=== PATIENT | female | born 1990 | race Caucasian/White ===

== ENCOUNTER 2018-02-23 07:52 | Emergency (ER) | payer BC ==
[2018-02-23] MEDS ORDERED: NORMAL SALINE 1000 ML 1,000 ML IV ONE (08:57)
[2018-02-23 09:11] LABS: ABSOLUTE LYMPHOCYTES (AUTO) 1.4 10^3/uL (0.5-4.7); ABSOLUTE MONOCYTES (AUTO) 0.7 10^3/uL (0.1-1.4); ABSOLUTE NEUT (AUTO) 5.9 10^3/uL (1.7-8.2); BASOPHILS % (AUTO) 0.6 % (0-2); EOSINOPHILS % (AUTO) 0.3 % (0-6); HEMATOCRIT 41.6 % (36.0-47.0); HEMOGLOBIN 14.4 g/dL (12.0-15.5); LYMPHOCYTES % (AUTO) 17.3 % (13-45); MEAN CORPUSCULAR HEMOGLOBIN 31.9 pg (27.0-33.4); MEAN CORPUSCULAR HGB CONC 34.6 g/dL (32.0-36.0); MEAN CORPUSCULAR VOLUME 92 fl (80-97); MONOCYTES % (AUTO) 8.5 % (3-13); PLATELET COUNT 254 10^3/uL (150-450); RED BLOOD COUNT 4.51 10^6/uL (3.72-5.28); RED CELL DISTRIBUTION WIDTH 13.2 % (11.5-14.0); SEGMENTED NEUTROPHILS % (AUTO) 73.3 % (42-78); TOTAL CELLS COUNTED % (AUTO) 100 %; WHITE BLOOD COUNT 8.1 10^3/uL (4.0-10.5)
[2018-02-23 09:17] LABS: APPEARANCE,URINE SLIGHTLY-CLOUDY; BILIRUBIN,URINE NEGATIVE (NEGATIVE); COLOR,URINE YELLOW; GLUCOSE, URINE NEGATIVE (NEGATIVE); KETONES,URINE NEGATIVE (NEGATIVE); LEUKOCYTE ESTERASE,URINE TRACE (NEGATIVE); NITRITE,URINE NEGATIVE (NEGATIVE); PROTEIN,URINE NEGATIVE (NEGATIVE); URINE SPECIFIC GRAVITY 1.002; UROBILINOGEN,URINE NEGATIVE mg/dL (<2.0)
[2018-02-23] MEDS ORDERED: ONDANSETRON HCL INJ/PF 4 MG/2 ML SDV IV ONE (09:20)
[2018-02-23 09:36] LABS: ALANINE AMINOTRANSFERASE 24 U/L (9-52); ALBUMIN 4.7 g/dL (3.5-5.0); ALKALINE PHOSPHATASE 53 U/L (38-126); ANION GAP 12 (5-19); ASPARTATE AMINO TRANSFERASE 20 U/L (14-36); BILIRUBIN,DIRECT 0.3 mg/dL (0.0-0.4); BILIRUBIN,TOTAL 0.8 mg/dL (0.2-1.3); BLOOD UREA NITROGEN 10 mg/dL (7-20); CARBON DIOXIDE 27 mmol/L (22-30); CHLORIDE 104 mmol/L (98-107); GLUCOSE 106 mg/dL (75-110); POTASSIUM 3.2 mmol/L (3.6-5.0); SODIUM 143.3 mmol/L (137-145)
--- NOTE | 2018-02-23 10:44 | ER Document Report ---
[facility]/ <PRIETO MORTENSEN - Last Filed: 02/23/18 10:47> - General Mode of Arrival: Ambulatory Information source: Patient TRAVEL OUTSIDE OF THE [place] IN LAST 30 DAYS: No <MARIS CAST - Last Filed: 02/23/18 11:30> - General Chief Complaint: Vomiting/Diarrhea Stated Complaint: VOMITING Time Seen by Provider: 02/23/18 09:02 Notes: 27-year-old female who presents to the emergency department today with complaints of vomiting and diarrhea for the last 4 days. Patient states that her last menstrual period was January 25, she is A1. Patient states she has vomited 6 times over the last 24 hours. Patient states she has had abdominal cramping with this diarrhea and vomiting. Patient states initially she was having large amounts of diarrhea but now it is just "little squirts". Patient denies any fevers. (MARIS CAST) - Related Data Allergies/Adverse Reactions: No Known Allergies Allergy (Verified 02/23/18 08:14) Past Medical History - General Information source: Patient - Social History Smoking Status: Current Every Day Smoker Cigarette use (# per day): Yes Chew tobacco use (# tins/day): No Frequency of alcohol use: None Drug Abuse: None Lives with: Family Family History: Reviewed & Not Pertinent Patient has suicidal ideation: No Patient has homicidal ideation: No Psychiatric Medical History: Reports: Hx Anxiety, Hx Depression Surgical Hx: Negative <MARIS CAST - Last Filed: 02/23/18 11:30> Review of Systems - Review of Systems Constitutional: No symptoms reported EENT: No symptoms reported Cardiovascular: No symptoms reported Respiratory: No symptoms reported Gastrointestinal: See HPI, Diarrhea, Vomiting Genitourinary: No symptoms reported Female Genitourinary: No symptoms reported Musculoskeletal: No symptoms reported Skin: No symptoms reported Hematologic/Lymphatic: No symptoms reported Neurological/Psychological: No symptoms reported -: Yes All other systems reviewed and negative <MARIS CAST - Last Filed: 02/23/18 11:30> Physical Exam <PRIETO MORTENSEN - Last Filed: 02/23/18 10:47> <MARIS CAST - Last Filed: 02/23/18 11:30> - Vital signs Vitals: Temp Pulse Resp BP Pulse Ox 98.4 F 119 H 18 143/78 H 100 02/23/18 08:23 02/23/18 08:23 02/23/18 08:23 02/23/18 08:23 02/23/18 08:23 - Notes Notes: Physical Exam: General: Alert, appears well. HEENT: Normocephalic. Atraumatic. PERRL. Extraocular movements intact. Oropharynx clear. Neck: Supple. Non-tender. Respiratory: No respiratory distress. Clear and equal breath sounds bilaterally. Cardiovascular: Regular rate and rhythm. Abdominal: Normal Inspection. Non-tender. No distension. Normal Bowel Sounds. Back: Non-tender. No deformity or step off. Extremities: Moves all four extremities. Upper extremities: Normal inspection. Normal ROM. Lower extremities: Normal inspection. No edema. Normal ROM. Neurological: Normal cognition. AAOx4. Normal speech. Psychological: Normal affect. Normal Mood. Skin: Warm. Dry. Normal color. (MARIS CAST) Course - Laboratory Result Diagrams: 02/23/18 08:53 02/23/18 08:53 <PRIETO MORTENSEN - Last Filed: 02/23/18 10:47> - Laboratory Result Diagrams: 02/23/18 08:53 02/23/18 08:53 <MARIS CAST - Last Filed: 02/23/18 11:30> - Vital Signs Vital signs: Temp Pulse Resp BP Pulse Ox 98.4 F 119 H 18 143/78 H 100 02/23/18 08:23 02/23/18 08:23 02/23/18 08:23 02/23/18 08:23 02/23/18 08:23 - Laboratory Laboratory results interpreted by me: 02/23/18 02/23/18 08:53 08:53 Potassium 3.2 L Urine Blood LARGE H Ur Leukocyte Esterase TRACE H Discharge <PRIETO MORTENSEN - Last Filed: 02/23/18 10:47> <MARIS CAST - Last Filed: 02/23/18 11:30> - Discharge Clinical Impression: Nausea, vomiting and diarrhea Additional Instructions: Gastroenteritis You most likely have gastroenteritis. This is an irritation of the stomach and intestinal tract. It's usually caused by a virus, but can also be caused by bacteria, toxins that cause food poisoning, or excessive alcohol intake. Symptoms may include fever, painful abdominal cramps, nausea, vomiting , and diarrhea. Start with small amounts (two to six ounces) of clear liquids (soft drinks , herb teas, broth, etc). Try to take fluids frequently even if you are vomiting, to prevent dehydration. When liquids are being consumed successfully , advance to small amounts of bland food (mashed potato, toast) for 6 - 12 hours. Gastroenteritis rarely requires medication. It goes away by itself. Use good handwashing so you don't spread germs. Wash underwear in very hot water. If symptoms are severe, talk to the doctor. Call your physician if blood appears in your vomitus or stool, if vomiting lasts longer than 24 hours, if the abdominal pain worsens or becomes localized to one area, or if you develop high fever. Take the medication as prescribed for nausea if needed. Drink small sips of cool clear liquids and to get plenty of rest. Increase potassium in your diet by eating bananas. Follow-up with your doctor if not improving. RETURN TO THE EMERGENCY ROOM IF ANY NEW OR WORSENING SYMPTOMS. Prescriptions: Ondansetron HCl [Zofran 4 mg Tablet] 1 - 2 tab PO Q4H PRN #12 tablet PRN Reason: Forms: Return to Work Scribe Attestation: 02/23/18 10:44 I personally performed the services described in the documentation, reviewed and edited the documentation which was dictated to the scribe in my presence, and it accurately records my words and actions. (MARIS CAST) Scribe Documentation - Scribe Written by Scribe:: Jada Willson, 02/23/2018 [id number] acting as scribe for :: Linda <SERENE,MARIS - Last Filed: 02/23/18 11:30>
[2018-02-23] MEDS ORDERED: POTASSIUM CHLORIDE 20 MEQ/15 ML UDCUP PO ONE (10:50)
[2018-02-23 11:02] VITALS: BP 132/68
== END 2018-02-23 11:01 | disposition home or self-care (01) ==
LOC: ER 07:52
DX: R19.7 Diarrhea, unspecified (principal); R11.2 Nausea with vomiting, unspecified; R10.9 Unspecified abdominal pain; F17.210 Nicotine dependence, cigarettes, uncomplicated
CPT/HCPCS: 99284; 96361; 96374; 36415; 85025; 81025; 80053; 81001; J2405; J7030